=== PATIENT | male | born 1965 | race Two or more races ===

== ENCOUNTER → 2018-09-08 | Outpatient (CLI) | payer OTHER ==
--- NOTE | 2018-09-08 14:54 | XR ---
Lumbosacral spine HISTORY: Back pain 5 views of the lumbosacral spine There is multilevel spondylosis. Lumbar vertebral bodies show preserved height, minimal anterior wedg ing of L1 and T12 may represent physiologic change. No evident spondylolysis or spondylolisthesis. Lo ss of disc height present at the intervertebral levels. Vacuum phenomenon present at L1-2 level, like ly L2-3 level. Sclerosis present in the posterior elements of the lower lumbar spine. IMPRESSION: Degenerative disc disease and facet arthropathy.
== END | disposition home or self-care (01) ==
LOC: RADXRMAIN 13:36
PROVIDERS: ATTEND Family Medicine
DX: M51.37 Other intervertebral disc degeneration, lumbosacral region (principal); M46.97 Unspecified inflammatory spondylopathy, lumbosacral region
CPT/HCPCS: 72110

== ENCOUNTER → 2019-09-14 | Outpatient (CLI) | payer OTHER ==
[2019-09-14 11:52] LABS: Basophils % (A) 1 %; Eosinophils # (A) 0.3 k/uL (0-0.7); Eosinophils % (A) 4 %; HCT 45.4 % (39.0-53.0); HGB 15.4 gm/dL (13.0-17.5); Lymphocytes # (A) 2.2 k/uL (1.0-4.8); Lymphocytes % (A) 29 %; MCH 33.9 pg (25.0-35.0); MCHC 33.8 g/dL (31.0-37.0); MCV 100.3 fL (80.0-100.0); Mean Platelet Volume 7.4; Monocytes # (A) 0.4 k/uL (0-1.0); Monocytes % (A) 5 %; Neutrophils # (A) 4.6 k/uL (1.3-7.7); Neutrophils % (A) 60 %; Platelet Count 207 k/uL (150-450); RBC 4.53 m/uL (4.30-5.90); RDW 12.7 % (11.5-15.5); WBC 7.6 k/uL (3.8-10.6)
[2019-09-14 11:57] LABS: Prothrombin Time 10.4 sec (9.0-12.0)
[2019-09-14 16:51] LABS: African American GFR (CKD) 119.9 (60.0-200.0); Albumin 4.1 g/dL (3.80-4.90); Albumin/Globulin Ratio 2.16 (1.60-3.17); Anion Gap 7.4 mmol/L (4.00-12.00); BUN/Creat Ratio 12.5 Ratio (12.00-20.00); Calcium 9.1 mg/dL (8.7-10.3); Carbon Dioxide 25.6 mmol/L (21.6-31.8); Globulin 1.9 g/dL (1.6-3.3); Non-African American GFR(CKD) 103.4 (60.0-200.0); Total Bilirubin 0.4 mg/dL (0.2-1.2)
[2019-09-14 17:55] LABS: Hepatitis A Antibody IgM Non-Reactive (Non-Reactive); Hepatitis B Core IgM Non-Reactive (Non-Reactive); Hepatitis B Surface Antigen Non-Reactive (Non-Reactive); Hepatitis C IgG Antibody Non-Reactive (Non-Reactive)
== END | disposition home or self-care (01) ==
LOC: LABWHC1 09:49
PROVIDERS: ATTEND Nurse Practitioner
DX: R94.5 Abnormal results of liver function studies (principal)
CPT/HCPCS: 36415; 80053; 80074; 85025; 85610